=== PATIENT | male | born 1995 | race Caucasian/White ===

== ENCOUNTER → 2022-04-21 | Outpatient (CLI) | payer BC ==
[2022-04-21 10:27] VITALS: BP 143/92
--- NOTE | 2022-04-21 18:16 | Cardiology Stress Test Report ---
Stress Test Report Date of Procedure/Referring: Date of Procedure: Apr 21, 2022 PCP Durga Collazo MD Admitting Physician Admitting Physician: Attending Physician: [place] Pa MD Indications: CP Baseline Heart Rate: 45 Baseline Blood Pressure: Blood Pressure Systolic: 143 Blood Pressure Diastolic: 92 Baseline EKG: Baseline EKG: NSR Summary/Conclusion: Summary: In summary, the patient started exercising with a baseline heart rate, blood pressure and EKG mentioned above Patient was able to exercise for a total of 14 minutes on Dean protocol, METs 14.7 Maximum heart rate 174 Maximum blood pressure 220/64 Stress EKG, Minimal nondiagnostic changes Recovery EKG , Return to baseline Conclusion: 1. Good exercise tolerance for a total of 14 minutes on Dean protocol, 14.7 METs, achieving 90 percent of maximum expected heart rate 2. Minimal nondiagnostic EKG changes with exercise returned to baseline during recovery 3. No arrhythmia was noted CH[place] PA MD Apr 21, 2022 18:16
== END ==
LOC: CARD 07:52
PROVIDERS: ATTEND Internal Medicine Cardiovascular Disease
DX: I11.9 Hypertensive heart disease without heart failure (principal); I25.10 Atherosclerotic heart disease of native coronary artery without angina pectoris
CPT/HCPCS: 93017; C8929; 93306